=== PATIENT | male | born 1945 | race Caucasian/White ===

== ENCOUNTER 2021-09-26 09:23 | Inpatient (IN) | payer SELFPAY ==
[2021-09-26] MEDS ORDERED: ACETAMINOPHEN 325 MG TABLET (FP) PO ONE (10:20)
[2021-09-26] MEDS ORDERED: LIDOCAINE 5% TOPICAL PATCH TP ONE (10:21)
[2021-09-26] MEDS ORDERED: LIDOCAINE 5% TOPICAL PATCH ONE (11:03)
[2021-09-26] MEDS ORDERED: ACETAMINOPHEN 325 MG TABLET (FP) ONE (11:03)
[2021-09-26] MEDS ORDERED: IBUPROFEN 400 MG TABLET (FP) PO ONE ×2 (17:11→17:22)
[2021-09-26 18:41] LABS: BASO % 0.5 % (0-2.0); EOS % 1.5 % (0-4.5); HEMATOCRIT 44.7 % (35.4-49); HEMOGLOBIN 15.2 GM/dL (11.7-16.9); MCH 32.4 pg (25.7-33.7); MEAN CELL VOLUME 95.1 fl (80-96); MEAN PLT VOLUME 8.8 fl (7.5-11.1); MONO % 9.5 % (3.8-10.2); NEUT % 69.5 % (42.8-82.8); PLATELET COUNT 243 10^3/uL (134-434); RDW 12.7 % (11.9-15.9); WHITE BLOOD COUNT 11.3 K/mm3 (4.0-10.0)
[2021-09-26 19:02] LABS: ALBUMIN 3.6 g/dl (3.4-5.0); CALCIUM 9.1 mg/dL (8.5-10.1)
[2021-09-26 19:03] LABS: BLOOD UREA NITROGEN 16.2 mg/dL (7-18)
[2021-09-26 19:07] LABS: BILIRUBIN,TOTAL 0.5 mg/dL (0.2-1); TOT PROT 7.6 g/dl (6.4-8.2)
[2021-09-26] MEDS ORDERED: LIDOCAINE PATCH REMOVAL MC ONE (22:00)
[2021-09-26 22:43] LABS: PH,URINE 5.5 (5.0-8.0); URINE APPEARANCE CLEAR; URINE BILIRUBIN NEGATIVE (NEGATIVE); URINE COLOR YELLOW; URINE GLUCOSE (UA) 1+ (NEGATIVE); URINE KETONE 1+ (NEGATIVE); URINE LEUK ESTERASE NEGATIVE (NEGATIVE); URINE NITRITE NEGATIVE (NEGATIVE); URINE PROTEIN NEGATIVE (NEGATIVE)
[2021-09-27 02:02] VITALS: BMI 32.5
[2021-09-27] MEDS ORDERED: ACETAMINOPHEN 1000 MG/100 ML BAG IVPB ONE (02:54)
[2021-09-27 07:32] LABS: BASO % 0.6 % (0-2.0); EOS % 3.3 % (0-4.5); HEMATOCRIT 41.4 % (35.4-49); HEMOGLOBIN 14.2 GM/dL (11.7-16.9); LYMPH % 22.9 % (8-40); MCH 32.7 pg (25.7-33.7); MCHC 34.2 g/dl (32.0-35.9); MEAN CELL VOLUME 95.5 fl (80-96); MEAN PLT VOLUME 8.7 fl (7.5-11.1); MONO % 12.4 % (3.8-10.2); NEUT % 60.8 % (42.8-82.8); PLATELET COUNT 204 10^3/uL (134-434); RBC 4.34 M/mm3 (4.00-5.60); RDW 12.5 % (11.9-15.9); WHITE BLOOD COUNT 8.7 K/mm3 (4.0-10.0)
[2021-09-27 08:22] LABS: BLOOD UREA NITROGEN 20.6 mg/dL (7-18); CALCIUM 8.3 mg/dL (8.5-10.1)
[2021-09-27 08:23] LABS: ALBUMIN 3.1 g/dl (3.4-5.0); BILIRUBIN,TOTAL 0.7 mg/dL (0.2-1); MAGNESIUM 2.2 mg/dL (1.8-2.4); TOT PROT 6.6 g/dl (6.4-8.2)
[2021-09-27 08:25] LABS: PHOSPHOROUS 2.7 mg/dL (2.5-4.9)
[2021-09-27] MEDS ORDERED: ENOXAPARIN NA (PORCINE) 40 MG/0.4 ML DISP.SYRIN SQ SCH (10:00)
[2021-09-27] MEDS ORDERED: ACETAMINOPHEN 325 MG TABLET (FP) PO PRN (11:02)
[2021-09-27] MEDS ORDERED: IBUPROFEN 200 MG TABLET PO PRN (11:07)
[2021-09-27] MEDS ORDERED: METHYL SALICYLATE/MENTHOL OINT 30 GM TUBE TP SCH (11:30)
[2021-09-27] MEDS: INSULIN SLIDING SCALE (NOVOLOG) 1 VIAL SQ SCH ×2 (12:36→17:49)
[2021-09-27 14:48] VITALS: BP 114/72; PULSE 104; TEMP 98.4
[2021-09-27] MEDS ORDERED: LIDOCAINE PATCH REMOVAL MC SCH (22:00)
[2021-09-28] MEDS ORDERED: LIDOCAINE 5% TOPICAL PATCH TP SCH (10:00)
== END 2021-09-27 18:24 | disposition home health service (06) | DRG 347 ==
LOC: JER 09:23 → JERBED 20:20 → J4W 09-27 00:45
PROVIDERS: ADMIT Internal Medicine; ATTEND Internal Medicine
DX: S32.039A Unspecified fracture of third lumbar vertebra, initial encounter for closed fracture (principal); G54.8 Other nerve root and plexus disorders; R00.0 Tachycardia, unspecified; S00.81XA Abrasion of other part of head, initial encounter; S60.511A Abrasion of right hand, initial encounter; M50.322 Other cervical disc degeneration at C5-C6 level; M85.88 Other specified disorders of bone density and structure, other site; K76.0 Fatty (change of) liver, not elsewhere classified; E03.9 Hypothyroidism, unspecified; E11.9 Type 2 diabetes mellitus without complications; W18.30XA Fall on same level, unspecified, initial encounter; Y92.098 Other place in other non-institutional residence as the place of occurrence of the external cause
CPT/HCPCS: 36415; 70450-TC; 71046-TC-FY; 72125-TC; 72131-TC; 72170-TC-FY; 73110-TC-RT-FY; 73130-TC-RT-FY; 80053; 80061; 81003; 82962; 83036; 83735; 84100; 84439; 84443; 84484; 85025; 87086; 87804; 93005; 93010; 93306-TC; 93880-TC; 97116-GP; 97162-GP; 99285-25; C9803; J0131; U0003; U0005